=== PATIENT | male | born 1995 | race Caucasian/White ===

== ENCOUNTER 2023-07-06 08:29 | Day surgery (SDC) | payer BC ==
[~2023-07-06] VITALS: Ht 175.3 cm; Wt 84.6 kg
[~2023-07-06 08:29] MED LIST: LR 1,000 ML IV SCH; Ondansetron 4 MG/2 ML VIAL IV PRN
[2023-07-06] MEDS ORDERED: BENTYL 20MG20 MG/TAB PO (09:06)
[2023-07-06] MEDS ORDERED: PRIL40 PO (09:07)
[2023-07-06] MEDS ORDERED: SPIRIVA RE2.5 MCG/Ac IH (09:07)
[2023-07-06] MEDS ORDERED: PROAIR HFA0.09 MG/AC IH (09:08)
[2023-07-06] MEDS ORDERED: Lidocaine PF 2% (20 MG/ML) 5 ML VIAL ONE (10:01)
[2023-07-06 10:22] VITALS: BP 127/78; PULSE 74; TEMP 98.5
[2023-07-06 10:50] VITALS: BP 125/62; PULSE 68; TEMP 97.5
[2023-07-06 11:05] VITALS: BP 108/75; PULSE 68
[2023-07-06 11:20] VITALS: BP 113/74; PULSE 64
[2023-07-06 11:35] VITALS: BP 109/76; PULSE 58
[2023-07-06 11:45] VITALS: BP 122/64; PULSE 60
--- NOTE | 2023-07-06 11:55 | NUR ---
1050 RETURNS TO ROOM 3 PER CART. PATIENT VERY DROWSY, OPENS EYES TO VERBAL STIMULATION. CHAIR PLACED AT BEDSIDE. STAND TRANSFERS WITH 2 ASSIST. ABD SOFT. VITAL SIGNS OBTAINED. CALL LIGHT AT SIDE. MOTHER IN ROOM 1105 REMAINS VERY DROWSY. OPENS EYES TO VERBAL STIMULI. 1115 DR. RITTER HERE. VISITS WITH PATIENT AND MOTHER 1130 MUCH MORE ALERT. TOLERATES PO JUICE WITHOUT NAUSEA. SWALLOWS WITHOUT DIFFICULTY 1135 DISCHARGE INSTRUCTIONS REVIEWED. PATIENT VERBALIZES UNDERSTANDING. COPY PROVIDED IN DISCHARGE FOLDER 1150 DRESSES SELF
== END 2023-07-06 11:55 | disposition home or self-care (01) ==
LOC: SDCO 08:29
DX: K21.00 Gastro-esophageal reflux disease with esophagitis, without bleeding (principal); R19.7 Diarrhea, unspecified; K57.30 Diverticulosis of large intestine without perforation or abscess without bleeding; D72.18 Eosinophilia in diseases classified elsewhere; R10.84 Generalized abdominal pain; R19.4 Change in bowel habit; R19.5 Other fecal abnormalities; Z86.19 Personal history of other infectious and parasitic diseases
CPT/HCPCS: J2704; J7120